=== PATIENT | female | born 1945 | race Caucasian/White ===

== ENCOUNTER 2017-08-31 05:14 | Day surgery (SDC) | payer OTHER ==
[~2017-08-31] VITALS: Ht 165.1 cm; Wt 117.0 kg
[~2017-08-31 05:14] MED LIST: ALBU8I INH; BENI20TA26 PO; VITA20002 PO
[2017-08-31] MEDS ORDERED: IOHEXOL 350 MG/ML 50 ML BTL (for Cath Lab) OTHER ONE (05:15)
[2017-08-31 06:13] LABS: AUTOMATED NEUTROPHIL # 5.1 TH/MM3 (1.8-7.7); BASOPHIL # 0.1 TH/MM3 (0-0.2); BASOPHIL % 0.8 % (0.0-2.0); EOSINOPHIL % 17.9 % (0.0-4.0); HEMATOCRIT 39.2 % (35.0-46.0); HEMO FLAGS DIFF FINAL; LYMPH % 28.7 % (9.0-44.0); LYMPHOCYTE # 3.2 TH/MM3 (1.0-4.8); MEAN CELL VOLUME 84.3 FL (80.0-100.0); MEAN CORPUSCULAR HEMOGLOBIN 28.5 PG (27.0-34.0); MEAN CORPUSCULAR HGB CONC 33.8 % (32.0-36.0); MONO % 6.6 % (0.0-8.0); PLATELET COUNT 260 TH/MM3 (150-450); RED BLOOD COUNT 4.65 MIL/MM3 (4.00-5.30); RED CELL DISTRIBUTION WIDTH 14.3 % (11.6-17.2); WHITE BLOOD COUNT 11.1 TH/MM3 (4.0-11.0)
[2017-08-31 06:27] LABS: APTT (PATIENT) 27.4 SEC (24.3-30.1); PROTHROMBIN TIME - PATIENT 10.8 SEC (9.8-11.6)
[2017-08-31 06:40] LABS: BICARBONATE 30.7 MEQ/L (21.0-32.0); POTASSIUM 3.7 MEQ/L (3.5-5.1)
[2017-08-31] MEDS ORDERED: BENI20TA5 PO (06:47)
[2017-08-31] MEDS ORDERED: XOPEAER4 INH (06:47)
[2017-08-31] MEDS ORDERED: HEPARIN-NS/PF INJ 1,000 ML ONE (07:00)
[2017-08-31] MEDS ORDERED: SODIUM CHLORID 0.9% 500 ML INJ 500 ML ONE (07:01)
[2017-08-31 07:13] VITALS: BP 174/84; PULSE 102; RESP 18; TEMP 98.4; O2SAT 97
[2017-08-31] MEDS ORDERED: ASPIRIN 81 MG CHEW TAB PO SCH (07:15)
[2017-08-31] MEDS ORDERED: MIDAZOLAM HCL 2 MG/2 ML VIAL ONE (07:56)
--- NOTE | 2017-08-31 08:13 | CATHPROC ---
[employer] HIS Report Study Information Study Number Admission Scheduled Start Study Start [id number] Aug 31 2017 5:14AM 08/31/2017 Aug 31 2017 7:00AM [facility] Cardiac Catheterization Admit Source Facility Department Other [facility] - Public Speaking Professor Physician and Clinical Staff Initial Charles Braun Anthropologist Physical Casimiro Greenberg Recorder Kendall Riggins RCIS(BS) Scrub Ramiro Liang RCIS(BS) Procedures Performed Procedure Location (Site) Vessel Name Coronary Angiograms RCA Right Coronary L Heart Cath LV Gram-hand inj. LV LV Ventricle Equipment Time Dog Warden Description Size Mfg Part Number Used/Scraped TRANSDUCER, TRHIRAM [id number] 07:11 OLVERA BARBA * Used W/STOCKCOCK *[id number] [id number] *[id number] *[id number] 07:11 MEDLINE INDUSTRIES PACK, CCL CUSTOM * Used *[id number] 07:11 [employer]cha[employer]se PACER PEN, SKIN DUAL W/ RULER * Used *[id number] 07:11 [employer]Bytes WIRE, 3MMJ .035 180CM 180CM Used *[id number] 07:11 NAMIC MANIFOLD, 4 PORT * Used *[id number] 07:11 NYCOMED OMNIPAQUE, 350 MG, 150ML 150ML [id number] Used [id number] 07:11 DE [employer] MEDICAL BLANKET,WARM AIR CCL * Used *[id number] 07:11 [email or web address] MEDICAL SHEATH, FR4 TERUMO (10CM) FR 4 Used *[id number] History: Risk Factors Family History of Hypertension Dyslipidemia Previous AR Previous Heart Failure Premature CAD Yes No No No No Prior Valve Prior PCI Prior CABG Surgery No No No Cerebrovascular Peripheral Artery Chronic Lung On Dialysis Diabetes Disease Disease Disease No No No Yes No History: Symptoms/Diagnosis Selection Items Chest pain History: Stress Tests Stress or Imaging Studies Performed No History: Other Current Smoker Method Quit Packs a Day Years Used Pack Years No Cigarettes 28 Years Ago 2 7 14 Labs Hgb (g/dl) Hct (%) WBC (l/cumm) Platelets (thousands) 11.60-17.00 35.00-51.00 4.00-11.00 150.00-450.00 13.2 39.2 11.1 260 Glucose (mg/dl) BUN (mg/dl) Creatinine (mg/dl) BUN:Creatinine (1:x) 74.00-106.00 7.00-18.00 0.50-1.30 10.00-20.00 104 19 1.1 17.3 Na (meq/l) K (meq/l) 136.00-145.00 3.50-5.10 139 3.7 INR (PTT:PT) 0.90-1.10 1 CPK-MB (ng/ML) 0.50-3.60 Not Drawn Medication Medication Total Dose (Bolus/Oral) Medication Total Dosage/Unit 1% XYLOCAINE 40 mL VERSED 1 mg Medications (Bolus/Oral) Medication Time Given Dosage/Unit Administered By Reason VERSED 08/31/2017 7:56:00 AM 1 mg Casimiro Greenberg 1 mg VERSED given in lab by Casimiro Greenberg in Left Antecubital via Peripheral IV. Ordered by Charles Anderson. 1% XYLOCAINE 08/31/2017 7:56:06 AM 20 mL Charles Bradford Patient arrived on 20 mL 1% XYLOCAINE given by Charles Bradford in Right Groin via Subcutaneous. Orde red by Charles Bradford. 1% XYLOCAINE 08/31/2017 7:57:35 AM 20 mL Charles Bradford 20 mL 1% XYLOCAINE given in lab by Charles Bradford in Right Groin via Subcutaneous. Ordered by Charles Street. Medication (Drip) Medication Time Given Dosage/Unit Concentration/Unit Diluent (ml) Solution IV Solutions 08/31/2017 7:00:51 AM 0 mL (IV) 500 NaCl .9 Patient arrived on IV Solutions in Left Antecubital via Peripheral IV. Pump/Drip Flow = 20 ml/hr usin g NaCl .9. Ordered by Charles Bradford. Initial Case Assessment Cardiovascular HR NIBP Chest Pain 105 159/85 0 Edema Present Skin color Skin None Normal Warm Dry Circulatory - Right Pulses Dorsalis Pedis Femoral 1 1 Scale (0,1,2,3,4,d) Circulatory - Left Pulses Dorsalis Pedis Femoral 1 1 Scale (0,1,2,3,4,d) Circulatory - Lower Extremities Color Lower Right Color Lower Left Normal Normal Neurological State Oriented to time-place- Alert Moves all extremities person Respiration - General Respiration Rate SpO2 (%) (B/min) 23 97 Chronological Log Time Study Chronological Log 7:00:29 Patient arrived via Bed. 7:00:30 Patient Name, D.O.B, / Armband Verified By R.N. 7:00:30 Consent signed by the physician and the patient and verified by the Public Speaking Professor staff. 7:00:31 Pre-op and post- op instructions given; patient acknowledges understanding of instructions. 7:00:32 Verbal Stimulation=2 Physical Stimulation=2 Airway=2 Respiration=2 TOTAL=8. (0=absent, 1=tai ited, 2=present) 7:00:33 Presedation assessment performed by Public Speaking Professor RN. 7:00:39 Patient has been NPO for More than 6Hrs. 7:00:40 Skin Breakdown- 7:00:45 Patient Warmer Placed on the Table. 7:00:50 A # 20 IV was noted in the Antecubital (left). Grade = 0 Patient arrived on IV Solutions in Left Antecubital via Peripheral IV. Pump/Drip Flow = 20 ml/hr using NaCl .9. Ordered 7:00:51 by Charles Bradford. 7:00:52 History and physical on the chart or being dictated. Assessment: Initial Case, YE=238 BPM, TDSI=984/85 mmhg, Chest Pain=0, Edema=None, Color=Normal, Skin = Warm, Dry Right Pulses: Jaleel Ped=1, Femoral=1 Left Pulses: Jaleel Ped=1, Femoral=1 7:00:53 Lower Right Extremities: Color=Normal Lower Left Extremities: Color=Normal Neurological: State=Alert, Ox3, [place] Respiration: Resp=23 B/min, SpO2=97 % Vitals capture started with the following parameters, Patient=Adult, Interval=5 min, Initial Pre nsavp=036 mmHg, 7:03:31 Deflation Rate=5 mmHg, Cuff placed on Left Arm 7:04:14 DQ=782 bpm, ALCF=736/77 mmhg, SpO2=98.0 %, Resp=16 B/min, Pain=0, Dolores=10, Reyes=2 7:09:15 AO=548 bpm, PZMN=864/79 mmhg, SpO2=98.0 %, Resp=10 B/min, Pain=0, Dolores=10, Reyes=2 7:13:08 Reference ECG taken 7:14:18 RI=179 bpm, CAEO=282/85 mmhg, SpO2=97.0 %, Resp=21 B/min, Pain=0, Dolores=10, Reyes=2 7:15:59 Pressure channel 1 zeroed. 7:18:17 Bilateral groins prepped with 2% chlorhexidine, and draped after a 3 minute waiting time. 7:18:21 MD paged 7:19:13 XK=930 bpm, TFUD=759/83 mmhg, SpO2=97.0 %, Resp=13 B/min 7:19:37 MD responded 7:24:14 HR=98 bpm, WOOY=982/81 mmhg, SpO2=97.0 %, Resp=12 B/min, Pain=0, Dolores=10, Reyes=2 7:29:13 HR=96 bpm, MCJH=561/71 mmhg, SpO2=97.0 %, Resp=6 B/min, Pain=0, Dolores=10, Reyes=2 7:34:14 HR=98 bpm, EYJL=840/78 mmhg, SpO2=98.0 %, Resp=30 B/min, Pain=0, Dolores=10, Reyes=2 7:39:13 HR=97 bpm, DNFS=927/85 mmhg, SpO2=98.0 %, Resp=12 B/min, Pain=0, Dolores=10, Reyes=2 7:44:14 HR=98 bpm, HJNC=088/78 mmhg, SpO2=95.0 %, Resp=12 B/min, Pain=0, Dolores=10, Reyes=2 7:49:15 HR=97 bpm, VCSL=855/80 mmhg, SpO2=95.0 %, Resp=17 B/min, Pain=0, Dolores=10, Reyes=2 7:54:19 YA=745 bpm, HYQM=653/78 mmhg, SpO2=96.0 %, Resp=13 B/min, Pain=0, Dolores=10, Reyes=2 7:56:00 1 mg VERSED given in lab by Casimiro Greenberg in Left Antecubital via Peripheral IV. Ordered by Charles Bradford. 7:56:01 MD arrived. Patient arrived on 20 mL 1% XYLOCAINE given by Charles Bradford in Right Groin via Subcutaneous. Ordered by 7:56:06 Charles Bradford. Time Out. Correct patient, correct procedure, correct physician, power injector not loaded with contrast with surgical 7:56:22 team present. Time Out Concurred by MD and individual staff in procedure. 7:56:24 Case Start 20 mL 1% XYLOCAINE given in lab by Charles Bradford in Right Groin via Subcutaneous. Ordered by Sanchez, 7:57:35 Charles. 7:58:07 Access site was Right Femoral Artery. 7:58:53 A SHEATH, FR4 TERUMO (10CM) FR 4 was advanced into the Fem Art (right) using the Percutane ous technique. 7:59:16 XY=404 bpm, WKZY=917/83 mmhg, SpO2=94.0 %, Resp=13 B/min, Pain=0, Dolores=10, Reyes=2 A JR 4.0 INFINITI CATHETER FR 4 was advanced over a wire. OMNIPAQUE, 350 MG, 150ML 150ML was u sed for 8:01:30 injections. Recorded Pressure: LV, HR=96, Condition=Condition 1 8:01:44 (Left Ventricle) LV 166/6/19 8:01:48 The LV was manually injected with 8 cc's and visualized. OMNIPAQUE, 350 MG, 150ML 150ML us ed. Recorded Pressure: LV, Ao, HR=97, Condition=Condition 1 8:01:58 (Left Ventricle) LV 180/6/13, (Aorta) Ao 159/79/116 8:02:30 The RCA was injected and visualized at various angles. OMNIPAQUE, 350 MG, 150ML 150ML use d. Recorded Pressure: Ao, HR=97, Condition=Condition 1 8:02:34 (Aorta) Ao 144/82/106 8:03:41 Catheter was removed A JL 4.0 INFINITI CATHETER FR 4 was advanced over a wire. OMNIPAQUE, 350 MG, 150ML 150ML was u sed for 8:03:43 injections. Recorded Pressure: Ao, [place]=294, Condition=Condition 1 8:04:15 (Aorta) Ao 139/73/103 8:04:17 HR=99 bpm, DUXP=914/81 mmhg, SpO2=94.0 %, Resp=22 B/min, Pain=0, Dolores=10, Reyes=2 8:04:29 Catheter was removed 8:04:35 Case End 8:08:48 Vitals capture stopped. 8:08:56 Sterile dressing applied to site 8:08:57 No case complications noted. 8:08:58 Cine recording checked. 8:09:00 Bedside Report will be given. 8:09:02 Contrast Scanned 8:09:06 A Left Heart Cath was performed. 8:09:09 Patient moved to [facility] End Study - Contrast Media Used In Study Contrast Total Opened (mL) Total Used (mL) Total Wasted (mL) Omnipaque 50 50 0 End Study - Maximum Contrast Load Max Contrast Load (mL) 536.4 End Study - Radiation Exposure Fluoro Time (minutes) 1.3 End Study - Patient Disposition Complications Transferred To Outpatient Bed
--- NOTE | 2017-08-31 08:35 | MA ---
cc: CALIXTO EDWARDS M.D. DATE: 08/31/2017 PROCEDURE Left heart catheterization, left ventriculography, coronary angiography. INDICATION New onset cardiac symptoms with severe chest pain at rest, unstable angina, [place] Cardi[employer] Society class IV angina and history of hypertension. DETAILS OF PROCEDURE The patient was brought to the cardiac catheterization laboratory, prepped and draped in usual sterile fashion. 10 cc of 1% lidocaine was used to locally anesthetize the right common femoral artery. A 4 Kyrgyz sheath was successfully placed in the right common femoral artery. 4 [place]yr[place]z JR4 and JL4 catheters were used to perform left and right coronary angiography, left ventriculography. FINDINGS The LV pressure is 160/5-10, EF 60%. The right coronary artery is dominant. There is mild disease in the proximal segment up to 10% angiographically. The left main coronary artery has no significant disease angiographically. The left circumflex vessel has no significant disease angiographically. The first and second obtuse marginal vessels are small, 0.5 mm vessels. The third obtuse marginal vessel is a large vessel, bifurcates to the distal segment approaches the apex, has no significant disease angiographically. The remainder of the AV groove and left circumflex vessel has no significant disease angiographically. It is a small vessel, probably 1 mm in diameter. The LAD is transapical. It has no significant disease angiographically. The first diagonal artery is a medium to large size vessel with no significant disease angiographically. CONCLUSIONS 1. Angiographically mild one-vessel coronary artery disease in a right-dominant system as detailed above. 2. Normal LV systolic function, ejection fraction 60%. RECOMMENDATIONS 1. Recommend medical management for coronary artery disease. 2. Recommend non-cardiac chest pain evaluation as well. I explained this to the patient. MD BRANDON Baptiste/HERACLIO /8:08 AM /8:15 AM
[2017-08-31] MEDS ORDERED: MISC INFORMATION XX ONE (08:45)
[2017-08-31] MEDS ORDERED: SODIUM CHLORIDE 0.9% FLUSH 10 ML FLUSH IV FLUSH PRN (08:45)
[2017-08-31] MEDS ORDERED: SODIUM CHLORIDE 0.9% FLUSH 10 ML FLUSH IV FLUSH SCH (09:00)
--- NOTE | 2017-08-31 21:21 | EKG ---
Date Performed: 08/31/2017 Time Performed: 06:24:48 PTAGE: 72 years EKG: --- Warning: Data quality may affect interpretation --- Sinus rhythm Lead(s) unsuitable for analysis: V6 Normal ECG based on available leads NO PREVIOUS TRACING DOCTOR: Altaf Pruitt Interpretating Date/Time 08/31/2017 21:18:55
== END 2017-08-31 11:01 | disposition home or self-care (01) ==
LOC: HDIC 05:14 → HDOC 05:14
PROVIDERS: ATTEND Internal Medicine Interventional Cardiology
DX: I25.110 Atherosclerotic heart disease of native coronary artery with unstable angina pectoris (principal); I35.0 Nonrheumatic aortic (valve) stenosis; I10 Essential (primary) hypertension; R09.89 Other specified symptoms and signs involving the circulatory and respiratory systems; J44.9 Chronic obstructive pulmonary disease, unspecified
CPT/HCPCS: 80048; 85025; 85610; 85730; 93005; 93458; 99152; C1769; C1893; J1644; J2250; J3010; J7040; Q9967